=== PATIENT | female | born 1945 | race Caucasian/White ===

== ENCOUNTER 2024-04-30 11:48 | Outpatient (RCR) | payer MEDICARE, OTHER, SELFPAY | END 2024-04-30 23:59 | disposition home or self-care (01) | LOC: RPT 11:48 | PROVIDERS: ATTENDING PHYSICIAN Physician Assistant; FAMILY PHYSICIAN Family Medicine | DX: N81.6 Rectocele (principal); Z73.6 Limitation of activities due to disability; K59.09 Other constipation | CPT/HCPCS: 97110; 97112; 97162; 97530 ==

== ENCOUNTER 2024-05-15 09:52 | Outpatient (RCR) | payer MEDICARE, OTHER, SELFPAY | END 2024-05-15 23:59 | disposition home or self-care (01) | LOC: RPT 09:52 | PROVIDERS: ATTENDING PHYSICIAN Physician Assistant; FAMILY PHYSICIAN Family Medicine | DX: N81.6 Rectocele (principal); Z73.6 Limitation of activities due to disability; K59.00 Constipation, unspecified | CPT/HCPCS: 97110; 97112 ==

== ENCOUNTER → 2024-12-26 08:41 | Outpatient (REF) | payer MEDICARE, OTHER, SELFPAY | LOC: RAD 08:41 | PROVIDERS: ATTENDING PHYSICIAN Family Medicine | DX: E78.2 Mixed hyperlipidemia (principal) | CPT/HCPCS: 75571 ==